=== PATIENT | female | born 2000 | race Caucasian/White ===

== ENCOUNTER 2021-12-15 20:18 | Inpatient (IN) | payer MEDICAID ==
[~2021-12-15] VITALS: Ht 165.1 cm; Wt 88.9 kg
[2021-12-15 20:28] VITALS: BP 136/102
--- NOTE | 2021-12-15 20:34 | NUR ---
PT TAKEN TO BED 9. RT NOTIFIED
--- NOTE | 2021-12-15 20:47 | NUR ---
Dr. Gold examining patient.
--- NOTE | 2021-12-15 20:49 | NUR ---
RT AT BEDSIDE FOR TREATMENT
[2021-12-15] MEDS ORDERED: DEXAMETHASONE 10 MG/ML VIAL IVP ONE (20:50)
[2021-12-15] MEDS ORDERED: ALBUTEROL 0.083% 2.5 MG/3 ML NEBU INH ONE (20:50)
[2021-12-15] MEDS ORDERED: IPRATROPIUM 0.02% 0.5 MG/2.5 ML NEBU INH ONE (20:50)
[2021-12-15] MEDS ORDERED: MAG SULF 2000 MG/WATER PREMIX 50 ML IV ONE (20:50)
--- NOTE | 2021-12-15 21:24 | NUR ---
PATIENT KARON SENT TO LAB
--- NOTE | 2021-12-15 21:34 | NUR ---
X-Ray at bedside.
--- NOTE | 2021-12-15 21:49 | NUR ---
PT ADMIN 24ML ALB AND STOPPED @ 10ML DUE TO INCR HR 141 DR WAS INFORMED AND WILL ORDER XOPENEX TO CONTINUE Tx
[2021-12-15] MEDS ORDERED: LEVALBUTEROL 1.25 MG/0.5 ML NEBU INH ONE (21:55)
--- NOTE | 2021-12-15 22:09 | NUR ---
1.25 XOP ADMIN PT TOLERATED WELL WILL CONTINUE TO MONITOR
--- NOTE | 2021-12-15 22:13 | NUR ---
SPOKE WITH RT PATIENT SENSITIVE TO ALBUTEROL. HR JUMPED TO 140s AND TX WAS STOPPED. ER MD AWARE OF INCREASED HR AND 1.25 XOPENEX WAS ADMINISTERED. PATIENT CURRENTLY FEELING "JITTERY AND SHAKINESS" BUT IS AAOX4, HR AT 131, BP INCREASED, 89% RA SINCE BREATHING TX HAS STOPPED.
[2021-12-15] MEDS ORDERED: ALBUTEROL SULFATE/IPRATROPIU 3 ML SOL IH PRN (23:00)
[2021-12-15 23:06] LABS: BASOPHILS % (AUTO) 0.4 % (0.0-2.0); EOSINOPHILS # (AUTO) 0.1 K/uL (0-0.4); EOSINOPHILS % (AUTO) 0.7 % (0.0-4.0); HEMATOCRIT 37.2 % (36-48); HEMOGLOBIN 12.7 g/dL (12.0-16.0); LYMPHOCYTES # (AUTO) 2.1 K/uL (2.5-16.5); LYMPHOCYTES % (AUTO) 15.7 % (20.5-51.1); MEAN CORPUSCULAR HEMOGLOBIN 30 pg (27-31); MEAN CORPUSCULAR HGB CONC 34 g/dL (33-37); MEAN CORPUSCULAR VOLUME 88.2 fL (80-94); MONOCYTES # (AUTO) 0.4 K/uL (0.8-1.0); NEUTROPHILS # (AUTO) 10.6 K/uL (1.8-7.7); NEUTROPHILS % (AUTO) 80.2 % (42.2-75.2); PLATELET COUNT (AUTO) 323 K/uL (140-450); RED BLOOD CELL COUNT(AUTO) 4.22 MIL/uL (4.20-5.40); RED CELL DISTRIBUTION WIDTH 13.1 % (11.6-13.7); WHITE BLOOD COUNT (AUTO) 13.2 K/uL (4.8-10.8)
--- NOTE | 2021-12-15 23:11 | NUR ---
patient admited tele hold ER bed 9
[2021-12-15 23:28] LABS: ALBUMIN 3.7 g/dL (3.4-5.0); ANION GAP 14.1 (8-16); CARBON DIOXIDE 22.9 mmol/L (21-32); CREATININE 0.8 mg/dL (0.6-1.3); TOTAL BILIRUBIN 1.1 mg/dL (0.0-1.0)
[2021-12-15] MEDS ORDERED: ALBU0.0912 INH (23:32)
[2021-12-15] MEDS ORDERED: FLUT1DSK IH (23:32)
[2021-12-15] MEDS ORDERED: ALBUTEROL 0.083% 2.5 MG/3 ML NEBU INH STA ×2 (23:41→23:43)
[2021-12-16] MEDS: methylPREDNISolone SS 125 MG/2 ML VIAL IVP SCH ×4 (00:08→18:08)
--- NOTE | 2021-12-16 01:00 | NUR ---
Patient appears to be resting comfortably in bed-semi fowlers. Patient on 4L NC. Respirations even and unlabored. Safety measures are in place, patient attached to security monitor, and will continue to monitor patient.
--- NOTE | 2021-12-16 05:36 | NUR ---
Patient appears to be resting comfortably in bed- eyes closed, and semi fowlers. Patient on 4L NC. Respirations even and unlabored. Safety measures are in place, patient attached to surveillance system monitor, and will continue to monitor patient.
--- NOTE | 2021-12-16 07:20 | NUR ---
Pt report given to Crystal PICKARD. Transfer of care at this time.
--- NOTE | 2021-12-16 07:50 | NUR ---
Patient will be admitted to care of estrada garcia. Admitted to telemetry. Will go to room 106A. Belongings list completed. Report to sangita goldberg.
--- NOTE | 2021-12-16 07:51 | NUR ---
Pt transferred to Tele via bed to room 106b with NEERAJ Alvarez .
--- NOTE | 2021-12-16 07:57 | NUR ---
Pt report given to sangita goldberg. Transfer of care at this time.
--- NOTE | 2021-12-16 08:15 | NUR ---
RECEIVED REPORT FROM ED NURSE FOR PT CONTINUITY OF CARE. PLAN OF CARE DISCUSSED. PT IS AWAKE, A/OX4 AND IN STABLE CONDITION. BREATHING IS MILDLY LABORED, ON 3L O2 WITH WHEEZING BREATH SOUNDS BILATERALLY THROUGHOUT. PT IS CONTINENT OF THE BOWEL AND BLADDER, AND ABLE TO AMBULATE ON A STEADY GAIT. SKIN IS INTACT, PT CURRENTLY DENIES PAIN AT THIS TIME. 22G IV NOTED ON THE RIGHT THUMB. Addendum: 12/16/21 at 0859 by Charisse Guillory RN WRITTEN IN ERROR. NOTE FOR PT 106B.
[2021-12-16 10:15] LABS: ANION GAP 15.3 (8-16); CARBON DIOXIDE 21.2 mmol/L (21-32); CREATININE 0.7 mg/dL (0.6-1.3); POTASSIUM 4.5 mmol/L (3.5-5.1)
[2021-12-16] MEDS ORDERED: ALBUTEROL SULFATE/IPRATROPIU 3 ML SOL IH PRN (10:15)
[2021-12-16] MEDS ORDERED: ACETAMINOPHEN 325 MG TAB PO PRN (10:35)
[2021-12-16] MEDS ORDERED: ONDANSETRON 4 MG/2 ML VIAL IVP PRN (10:35)
[2021-12-16 10:43] LABS: BASOPHILS % (AUTO) 0.1 % (0.0-2.0); HEMATOCRIT 37.6 % (36-48); HEMOGLOBIN 12.6 g/dL (12.0-16.0); LYMPHOCYTES # (AUTO) 1.1 K/uL (2.5-16.5); LYMPHOCYTES % (AUTO) 7.2 % (20.5-51.1); MEAN CORPUSCULAR HEMOGLOBIN 30 pg (27-31); MEAN CORPUSCULAR HGB CONC 34 g/dL (33-37); MEAN CORPUSCULAR VOLUME 89.3 fL (80-94); MONOCYTES # (AUTO) 0.2 K/uL (0.8-1.0); MONOCYTES % (AUTO) 1.5 % (1.7-9.3); NEUTROPHILS # (AUTO) 13.4 K/uL (1.8-7.7); NEUTROPHILS % (AUTO) 91.2 % (42.2-75.2); PLATELET COUNT (AUTO) 398 K/uL (140-450); RED CELL DISTRIBUTION WIDTH 13.1 % (11.6-13.7); WHITE BLOOD COUNT (AUTO) 14.7 K/uL (4.8-10.8)
[2021-12-16 13:31] VITALS: BP 137/65
[2021-12-16] MEDS: ALBUTEROL SULFATE/IPRATROPIU 3 ML SOL IH SCH ×2 (14:18→19:00)
[2021-12-16 16:00] VITALS: BP 120/69
[2021-12-16 20:00] VITALS: BP 125/64
[2021-12-17] VITALS: BP 115/68
[2021-12-17] MEDS: methylPREDNISolone SS 125 MG/2 ML VIAL IVP SCH ×2 (00:25→06:00)
--- NOTE | 2021-12-17 00:35 | NUR ---
PATIENT SLEEPING HAS 02 ON 2 LITERS N/C SAT 95%. LUNGS CLEAR SINUS TACH 119 HEART RATE.PATIENT ALERT X4 GIVEN SOLU MEDROL 40 MG IVP.TEMP 99.1 NO DISTRESS NOTED.
[2021-12-17] MEDS: ALBUTEROL SULFATE/IPRATROPIU 3 ML SOL IH SCH ×2 (01:10→07:54)
[2021-12-17 04:00] VITALS: BP 115/62
--- NOTE | 2021-12-17 07:26 | NUR ---
RECEIVED REPORT FROM ACCOUNTS COLLECTOR NURSE FOR CONTINUITY OF CARE. PT IS IN BED RESTING AT THIS TIME. RESPIRATIONS ARE EVEN AND UNLABORED. PT IS ON 3L 02 VIA NC. NO SIGNS OF DISTRESS NOTED. PT IS ALERT AND ORIENTED X4, ABLE TO VERBALIZE NEEDS, ABLE TO FOLLOW COMMANDS. SKIN IS WARM, DRY, AND INTACT. IV TO RENATO 22G, SALINE LOCKED. CALL LIGHT WITHIN REACH. ALL SAFETY MEASURES IN PLACE. WILL CONTINUE TO MONITOR.
[2021-12-17 08:00] VITALS: BP 117/68
--- NOTE | 2021-12-17 08:56 | NUR ---
PATIENT HAS BEEN SCREENED AND CATEGORIZED MODERATE NUTRITION RISK. PATIENT WILL BE SEEN WITHIN 3-5 DAYS OF ADMISSION. 12/17/ KAY NOE RD Addendum: 12/17/21 at [address] *12/18/21-12/20/21
[2021-12-17] MEDS ORDERED: FLUT1DSK IH (10:05)
[2021-12-17] MEDS ORDERED: ALBU0.0912 INH (10:05)
--- NOTE | 2021-12-17 10:25 | NUR ---
DISCHARGE ORDER IN PLACE. RT ASSESSED PT. STATES ON ROOM AIR, PT 02 SAT IS 91-92%. DR DAVIS MADE AWARE, PER DR DAVIS CONTINUE WITH DC ORDER, HOWEVER, HAVE PT RECEIVE BREATHING TX BEFORE DISCHARGE. WILL ORDER BREATHING TX. WILL CONTINUE TO MONITOR.
[2021-12-17 10:37] VITALS: BP 117/68
--- NOTE | 2021-12-17 11:03 | NUR ---
WENT OVER DISCHARGE PAPERWORK WITH PT. ANSWERED ALL QUESTIONS. PT VERBALIZED UNDERSTANDING OF ALL INFORMATION PROVIDED. REMOVED IV. IV CATHETER INTACT. PT TO RECEIVE BREATHING TX BEFORE DISCHARGE. WILL DISCHARGE HOME AFTER BREATHING TX.
--- NOTE | 2021-12-17 11:35 | NUR ---
PT DISCHARGED HOME WITH FAMILY. ALL BELONGINGS TAKEN UPON DISCHARGE.
== END 2021-12-17 12:09 | disposition home or self-care (01) | DRG 133 ==
LOC: MED 20:18 → MTU 23:11
PROVIDERS: ADMIT Student in an Organized Health Care Education/Training Program; ATTEND Student in an Organized Health Care Education/Training Program
DX: J96.01 Acute respiratory failure with hypoxia (principal); J45.902 Unspecified asthma with status asthmaticus; E87.6 Hypokalemia; Z20.822 Contact with and (suspected) exposure to COVID-19; R74.01 Elevation of levels of liver transaminase levels; E66.9 Obesity, unspecified; Z68.32 Body mass index [BMI] 32.0-32.9, adult
CPT/HCPCS: 36415; 36600; 71045; 76700; 80048; 80053; 82803; 85025; 86704; 86706; 86708; 86709; 86803; 87081; 87340; 94640; 94644; J1100; J2930; J3475; J7612; J7613; J7644; Q0092